=== PATIENT | male | born 1945 | race Caucasian/White ===

== ENCOUNTER 2021-11-04 07:52 | Outpatient (CLI) | payer OTHER, SELFPAY | END 2021-11-04 07:53 | disposition home or self-care (01) | LOC: AMB 11-15 09:01 | PROVIDERS: Visit Provider Family Medicine | DX: S59.912A Unspecified injury of left forearm, initial encounter (principal); V53.6XXA Passenger in pick-up truck or van injured in collision with car, pick-up truck or van in traffic accident, initial encounter; Y92.413 State road as the place of occurrence of the external cause | CPT/HCPCS: A0425; A0427 ==